=== PATIENT | male | born 1950 | race Caucasian/White ===

== ENCOUNTER 2021-01-12 15:55 | Outpatient (CLI) | payer MEDICARE, SELFPAY | END 2021-01-12 15:56 | disposition home or self-care (01) | LOC: ANHCOVIDVC 15:56 | PROVIDERS: PCP Internal Medicine | DX: Z23 Encounter for immunization (principal) | CPT/HCPCS: 0001A; 91300 ==

== ENCOUNTER 2021-02-02 15:56 | Outpatient (CLI) | payer MEDICARE, SELFPAY | END 2021-02-02 15:57 | disposition home or self-care (01) | LOC: ANHCOVIDVC 15:56 | PROVIDERS: PCP Internal Medicine | DX: Z23 Encounter for immunization (principal) | CPT/HCPCS: 0002A; 91300 ==

== ENCOUNTER 2022-07-25 01:27 | Day surgery (SDC) | payer MEDICARE, SELFPAY ==
[2022-07-16 10:16] VITALS: BMI 24.3
--- NOTE | 2022-07-24 10:22 | WPDANESEPPF ---
Anes - Initial Pre Proc Eval Procedure: Operation Date: 07/25/22 10:00 Proposed Procedures p Esophagogastroduodenoscopy & Screening Colonoscopy - Fabricio Thompson MD Date/Time: 07/24/22 10:22 Surgeon: Fabricio Thompson MD Pre Op Diagnosis: GERD, hx of colon polyps Patient Data Age: 72 Gender: M Height: 1.7 m Weight: 70.6 kg Allergies Allergy/AdvReac Type Severity Reaction Status Date / Time pollen extracts Allergy Unknown Sneezing Verified 07/25/22 08:47 No Known Allergies Allergy Unverified 07/25/22 08:47 Home Medications Medication Instructions Recorded Confirmed Type coenzyme Q10 75 mg capsule (Ultra 200 mg PO DAILY 04/16/21 07/25/22 History CoQ10) multivitamin 1 tablet PO DAILY 04/16/21 07/25/22 History amlodipine 5 mg tablet 5 mg PO DAILY #90 tabs 07/17/21 07/25/22 Rx icosapent ethyl 1 gram capsule 2 g PO BID #120 caps 11/15/21 07/25/22 Rx (Vascepa) lansoprazole 30 mg capsule,delayed 30 mg PO DAILY #30 caps 11/15/21 07/25/22 Rx release lisinopril 10 mg tablet 10 mg PO DAILY #30 tabs 02/20/22 07/25/22 Rx levothyroxine 75 mcg tablet 75 mcg PO DAILY #90 tabs 04/24/22 07/25/22 Rx atorvastatin 40 mg tablet 20 mg PO DAILY #90 tabs 05/06/22 07/25/22 Rx blood-glucose meter (OneTouch #1 ea 05/06/22 05/06/22 Rx Ultra2 Meter kit) sodium,potassium,mag sulfates 17.5 See Rx Instructions PO .COMPLEX 07/01/22 Rx gram-3.13 gram-1.6 gram oral soln #354 mL (Suprep Bowel Prep Kit) testosterone 30 mg/actuation (1.5 2 pump topical DAILY 90 days #270 07/12/22 Rx mL) transderm solution metered pump mL tadalafil 20 mg tablet (Cialis) 20 mg PO DAILY PRN sexual activity 07/16/22 Rx #30 tabs sitagliptin 100 mg-metformin ER 1 tablet PO DAILY #90 tabs 07/23/22 07/25/22 Rx 1,000 mg tablet,extended [id number] (Janumet XR) Patient hx anesthesia problems: none Family hx anesthesia problems: none Results Review: All pre-operative results and documents have been reviewed as part of the pre-operative evaluation. PENDING SALE TO [facility] Past Medical History Medical History (Updated 07/25/22 @ 08:58 by Raul Temple DO) Acid reflux Diabetes mellitus Elevated bilirubin Elevated WBC count Encounter for HCV screening test for low risk patient Erectile dysfunction GERD (gastroesophageal reflux disease) HTN (hypertension) Hx of colonic polyps Hyperlipidemia Hypogonadism in male Hypothyroid Lightheaded Long-term current use of testosterone replacement therapy Nocturia Primary osteoarthritis, left shoulder Patient needs referral to Ortho Seasonal allergies Serum total bilirubin elevated Type 2 diabetes mellitus Vitamin D deficiency Surgical History Surgical History Hx of hemorrhoidectomy Family History Family History Father Hypertension Patient's father is in good health Cerebrovascular accident Mother Heart disease Sibling Breast cancer Son Cerebrovascular accident Social History Social History Smoking status: Never smoker Second hand tobacco smoke exposure: No Alcohol intake: never Substance use: never Substance use type: does not use Living arrangements: with family Spiritual care concerns: No Anes - Eval Final PreProcedure Day of Procedure 07/24/22 10:22 Patient weight: normal Heart: regular rate and rhythm Lungs: clear to auscultation and normal air movement Airway: Mallampati scale class II Neurological: alert and oriented Last oral intake: >/= 8 hours ASA classification: III Emergent: no Anesthetic plan: proceed Anesthesia type and monitoring: general GIVS and standard monitoring Results Review: All pre-operative results and documents have been reviewed as part of the pre-operative evaluation. Informed Consent: The patient's anesthetic plan and its attendant risks and benefits
[2022-07-25 08:47] LABS: Glucose Point of Care 157 mg/dl (65-105)
[2022-07-25 08:49] VITALS: BP 131/84; PULSE 70; RESP 18; TEMP 36.3; O2SAT 98
[2022-07-25] MEDS: LACTATED RINGERS 1,000 ML 150 ML IV CONT (08:52)
--- NOTE | 2022-07-25 09:24 | PM.IMHP ---
H&P: HPI History of Present Illness Date/Time: 07/25/22 09:24 Chief Complaint: GE reflux disease and history of colon polyps. Narrative: This is a 72-year-old white male patient who was found to have adenomatous colon polyps about 5 years ago. Patient presents today for follow-up screening colonoscopy. Patient reports his bowel habits are normal. 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 Patient swallows easily . he no longer has heartburn while to continuing lansoprazole 30mg p.o. daily. Patient does note that he becomes flushed when eating almost any food. This only lasts for several seconds and not related to temperature nor type of food. He presents today for follow-up EGD. Review of Systems Review of Systems: Review of systems noncontributory. [facility] Past Medical History Medical History (Updated 07/25/22 @ 08:58 by Raul Temple DO) Acid reflux Diabetes mellitus Elevated bilirubin Elevated WBC count Encounter for HCV screening test for low risk patient Erectile dysfunction GERD (gastroesophageal reflux disease) HTN (hypertension) Hx of colonic polyps Hyperlipidemia Hypogonadism in male Hypothyroid Lightheaded Long-term current use of testosterone replacement therapy Nocturia Primary osteoarthritis, left shoulder Patient needs referral to Ortho Seasonal allergies Serum total bilirubin elevated Type 2 diabetes mellitus Vitamin D deficiency Surgical History Surgical History Hx of hemorrhoidectomy Family History Family History Father Hypertension Patient's father is in good health Cerebrovascular accident Mother Heart disease Sibling Breast cancer Son Cerebrovascular accident Social History Social History Smoking status: Never smoker Second hand tobacco smoke exposure: No Alcohol intake: never Substance use: never Substance use type: does not use Living arrangements: with family Spiritual care concerns: No Meds Home Medications and Allergies Home Medications Medication Instructions Recorded Confirmed Type coenzyme Q10 75 mg capsule (Ultra 200 mg PO DAILY 04/16/21 07/25/22 History CoQ10) multivitamin 1 tablet PO DAILY 04/16/21 07/25/22 History amlodipine 5 mg tablet 5 mg PO DAILY #90 tabs 07/17/21 07/25/22 Rx icosapent ethyl 1 gram capsule 2 g PO BID #120 caps 11/15/21 07/25/22 Rx (Vascepa) lansoprazole 30 mg capsule,delayed 30 mg PO DAILY #30 caps 11/15/21 07/25/22 Rx release lisinopril 10 mg tablet 10 mg PO DAILY #30 tabs 02/20/22 07/25/22 Rx levothyroxine 75 mcg tablet 75 mcg PO DAILY #90 tabs 04/24/22 07/25/22 Rx atorvastatin 40 mg tablet 20 mg PO DAILY #90 tabs 05/06/22 07/25/22 Rx blood-glucose meter (OneTouch #1 ea 05/06/22 05/06/22 Rx Ultra2 Meter kit) sodium,potassium,mag sulfates 17.5 See Rx Instructions PO .COMPLEX 07/01/22 Rx gram-3.13 gram-1.6 gram oral soln #354 mL (Suprep Bowel Prep Kit) testosterone 30 mg/actuation (1.5 2 pump topical DAILY 90 days #270 07/12/22 Rx mL) transderm solution metered pump mL tadalafil 20 mg tablet (Cialis) 20 mg PO DAILY PRN sexual activity 07/16/22 Rx #30 tabs sitagliptin 100 mg-metformin ER 1 tablet PO DAILY #90 tabs 07/23/22 07/25/22 Rx 1,000 mg tablet,extended [id number] mp (Janumet XR) Allergies Allergy/AdvReac Type Severity Reaction Status Date / Time pollen extracts Allergy Unknown Sneezing Verified 07/25/22 08:47 No Known Allergies Allergy Unverified 07/25/22 08:47 Exam Narrative: Physical exam reveals patient be alert. Vital signs stable. HEENT exam is unremarkable. Patient is anicteric. Lungs are clear to auscultation and percussion. Heart is without murmur or extra sounds. Abdominal exam bowel sounds are present soft nontender with no o
--- NOTE | 2022-07-25 10:09 | SUR.OPER ---
EGD: [id number] COLON: [id number]
[2022-07-25] MEDS: SIMETHICONE ORAL SUSPENSION 20 MG/0.3 ML 30 ML BOTTLE 0.6 ML IRRIGATION (10:23)
[2022-07-25 10:32] VITALS: BP 108/71; PULSE 96; RESP 19; O2SAT 96
[2022-07-25 10:42] VITALS: BP 131/83; PULSE 98; RESP 14; O2SAT 96
[2022-07-25 10:52] VITALS: BP 131/83; PULSE 69; RESP 17; O2SAT 100
== END 2022-07-25 11:08 | disposition home or self-care (01) ==
PROVIDERS: PCP Nurse Practitioner Family; Visit Provider Internal Medicine Gastroenterology
PROC: 0DJ08ZZ Inspection of Upper Intestinal Tract, Via Natural or Artificial Opening Endoscopic (ICD-10-PCS; CPT 43235; principal; 2022-07-25 10:00)
DX: Z12.11 Encounter for screening for malignant neoplasm of colon (principal); Z86.010 Personal history of colon polyps; K64.8 Other hemorrhoids; K21.9 Gastro-esophageal reflux disease without esophagitis; E03.9 Hypothyroidism, unspecified; E55.9 Vitamin D deficiency, unspecified; E11.9 Type 2 diabetes mellitus without complications; E78.5 Hyperlipidemia, unspecified; I10 Essential (primary) hypertension; D72.829 Elevated white blood cell count, unspecified
CPT/HCPCS: 43235; G0105; 82948; J2704; J7120

== ENCOUNTER → 2024-02-27 14:20 | Outpatient (CLI) | payer MEDICARE, SELFPAY ==
--- NOTE | ~2024-02-27 | XR_ITS ---
EXAMINATION: XR shoulder LT min 2V DATE: 02/27/2024 14:34 INDICATION: Left shoulder pain. TECHNIQUE: 4 views of left shoulder were obtained. COMPARISON: None. FINDINGS: Bone alignment is normal. No fracture. There is mild osteoarthritis of glenohumeral joint a nd severe osteoarthritis of acromioclavicular joint. IMPRESSION: 1. Polyarticular osteoarthritis. Reviewed, dictated and finalized at location E.
== END ==
PROVIDERS: PCP Nurse Practitioner Family; Visit Provider Nurse Practitioner Family
DX: M19.012 Primary osteoarthritis, left shoulder (principal)
CPT/HCPCS: 73030